=== PATIENT | female | born 1960 | race African-American/Black ===

== ENCOUNTER 2016-10-02 19:53 | Inpatient (IN) | payer OTHER ==
[~2016-10-02] VITALS: Ht 172.7 cm; Wt 46.7 kg
[2016-10-02] MEDS ORDERED: IPRATROPIUM BROMIDE (0.02%) 0.5MG/2.5ML NEB HHN STA (21:16)
[2016-10-02] MEDS ORDERED: ALBUTEROL (0.083%) 2.5MG/3ML NEB HHN STA (21:16)
[2016-10-02] MEDS ORDERED: METHYLPREDNISOLONE SOD SUCC 125 MG/2 ML VIAL IV STA (21:16)
[2016-10-02] MEDS ORDERED: VANCOMYCIN 1 G PREMIX 200 ML IV ONE (21:30)
[2016-10-02] MEDS ORDERED: SODIUM CHLORIDE 0.9% 1000ML BAG (SEPSIS BOLUS) IV ONE (21:30)
[2016-10-02] MEDS ORDERED: PIPERACILLIN/TAZ 3.375G PREMIX 50 ML IV ONE (21:30)
[2016-10-02] MEDS ORDERED: ASPIRIN 81MG TABLET GT ONE (21:30)
[2016-10-02 21:55] LABS: MEAN CORPUSCULAR HEMOGLOBIN 29.1 pg (28.0-32.0); MEAN PLATELET VOLUME 7.8 fl (7.4-10.4); PLATELET 242 x1000/uL (130-400); RED BLOOD CELL COUNT 3.78 mill/uL (4.2-5.4); RED CELL DISTRIBUTION WIDTH 18.2 % (11.6-14.6)
[2016-10-02 21:57] LABS: INR 1.1; PROTHROMBIN TIME 11.3 sec
[2016-10-02] MEDS ORDERED: IPRATROPIUM/ALBUTEROL 0.5-3(2.5)MG/3ML NEB ONE (21:58)
[2016-10-02] MEDS ORDERED: ALBUTEROL (0.5%) 2.5MG/0.5ML NEB HHN ONE (21:59)
[2016-10-02 22:07] LABS: CARBON DIOXIDE 38 mEq/L (21-32); CHLORIDE 103 mEq/L (98-107); TROPONIN I < 0.02 ng/mL (0.00-0.04)
[2016-10-02 22:14] LABS: PLATELET ESTIMATE NORMAL
[2016-10-02 22:53] LABS: CLARITY URINE CLEAR (CLEAR); COLOR URINE YELLOW (YELLOW); GLUCOSE URINE NEGATIVE (NEGATIVE); KETONES URINE NEGATIVE (NEGATIVE); LEUKOCYTE ESTERASE URINE 2+ (NEGATIVE); NITRITE URINE NEGATIVE (NEGATIVE); OCCULT BLOOD URINE 1+ (NEGATIVE); PROTEIN URINE NEGATIVE (NEGATIVE); SPECIFIC GRAVITY URINE 1.024 (1.005-1.030)
[2016-10-03] VITALS (9 sets, daily range): BP systolic 95–140; BP diastolic 22–85
[2016-10-03] MEDS ORDERED: LEVO500T15 PO (08:18)
[2016-10-03] MEDS ORDERED: MONT10TA21 PO (08:18)
[2016-10-03] MEDS ORDERED: ASCO500C6 PO (08:18)
[2016-10-03] MEDS ORDERED: DOCU-138 PO (08:18)
[2016-10-03] MEDS ORDERED: PROT40 PO (08:18)
[2016-10-03] MEDS ORDERED: OCD MT (08:18)
[2016-10-03] MEDS ORDERED: MULT-1146 PO (08:18)
[2016-10-03] MEDS ORDERED: ACET-2178 PO (08:18)
[2016-10-03] MEDS ORDERED: CARV6.2548 PO (08:18)
[2016-10-03] MEDS ORDERED: [UNRECOGNIZED DRUG - OTHER] (08:18)
[2016-10-03] MEDS ORDERED: LOSA25TA12 PO (08:18)
[2016-10-03] MEDS ORDERED: P20 PO (08:20)
[2016-10-03] MEDS ORDERED: MORPHINE SULFATE 2 MG/ML CPJ (NOT FOR IM USE) IV PRN (11:45)
[2016-10-03] MEDS ORDERED: DIPHENHYDRAMINE 50MG/ML VIAL IV PRN (11:45)
[2016-10-03] MEDS ORDERED: METHYLPREDNISOLONE SOD SUCC 40 MG/ML VIAL IV SCH (12:00)
[2016-10-03] MEDS: CALCIUM CARBONATE/VITAMIN D3 500MG TABLET PO SCH ×2 (13:07→17:17)
[2016-10-03] MEDS: DEXT 5%/0.45% NACL KCL 20MEQ/L 1,000 ML IV SCH (13:08)
[2016-10-03] MEDS: LOSARTAN POTASSIUM 25 MG TABLET PO SCH (13:08)
[2016-10-03] MEDS: DOCUSATE SODIUM 100MG CAPSULE PO SCH (13:08)
[2016-10-03] MEDS: PANTOPRAZOLE 40MG DR TABLET PO SCH (13:11)
[2016-10-03] MEDS ORDERED: IPRATROPIUM/ALBUTEROL 0.5-3(2.5)MG/3ML NEB HHN PRN (15:30)
[2016-10-03 15:49] LABS: BG CARBOXYHEMOGLOBIN 0.7 % (0.5-1.5); BG DEOXYHEMOGLOBIN 0.4 % (0.0-5.0); BG HCO3 ACT 35.3 mmol/L (22.0-26.0); BG METHEMOGLOBIN 0.4 % (0.0-1.5); BG OXYGEN SATURATION 99.6 % (92.0-98.5); BG OXYHEMOGLOBIN 98.5 % (94.0-97.0); BG PCO2 62.4 mmHg (35.0-45.0); BG PO2 287.1 mmHg (75.0-100.0); BG SAMPLE SITE RIGHT RADIAL; BG TIDAL VOLUME(mL) 350 mL; BG TOTAL HEMOGLOBIN 12.5 g/dL (12.0-18.0); BG VENT MODE VENT - A/C; BG VENT RATE 10 set
[2016-10-03 15:59] LABS: CREATINE KINASE 14 IU/L (26-192); TROPONIN I < 0.02 ng/mL (0.00-0.04)
[2016-10-03] MEDS ORDERED: SODIUM CHLORIDE 10% FOR INH 15ML VIAL NEB INH NR (17:00)
[2016-10-03] MEDS ORDERED: VANCOMYCIN 1 G PREMIX 200 ML IV NR (17:00)
[2016-10-03] MEDS: METHYLPREDNISOLONE SOD SUCC 40 MG/ML VIAL IV SCH (17:17)
[2016-10-03] MEDS: PIPERACILLIN SODIUM/TAZOBACTAM 4.5 G in DEXT 5% WATER 100 ML IV SCH (17:17)
[2016-10-03 20:04] LABS: CLARITY URINE CLEAR (CLEAR); COLOR URINE YELLOW (YELLOW); GLUCOSE URINE NEGATIVE (NEGATIVE); KETONES URINE NEGATIVE (NEGATIVE); LEUKOCYTE ESTERASE URINE 2+ (NEGATIVE); NITRITE URINE NEGATIVE (NEGATIVE); OCCULT BLOOD URINE 2+ (NEGATIVE); PH URINE 5.5 (4.5-8.0); PROTEIN URINE NEGATIVE (NEGATIVE); UROBILINOGEN URINE 0.2 E.U./dL (0.2-1.0)
[2016-10-03 20:15] LABS: *AMPHETAMINES SCREEN URINE NEGATIVE (NEGATIVE); *BARBITURATES SCREEN URINE NEGATIVE (NEGATIVE); *BENZODIAZEPINES SCREEN URINE NEGATIVE (NEGATIVE); *COCAINE SCREEN URINE NEGATIVE (NEGATIVE); CANNABINOID URINE SCREEN NEGATIVE (NEGATIVE); METHADONE URINE SCREEN NEGATIVE (NEGATIVE); OPIATES URINE SCREEN NEGATIVE (NEGATIVE); PHENCYCLIDINE URINE SCREEN NEGATIVE (NEGATIVE)
[2016-10-03] MEDS: IPRATROPIUM/ALBUTEROL 0.5-3(2.5)MG/3ML NEB HHN SCH (20:40)
[2016-10-03] MEDS: BUDESONIDE 0.5MG/2ML NEB HHN SCH (20:45)
[2016-10-03] MEDS: MONTELUKAST SODIUM 10MG TABLET PO SCH (21:25)
[2016-10-03] MEDS: CARVEDILOL 6.25 MG TABLET PO SCH (21:28)
[2016-10-03 23:43] LABS: CREATINE KINASE 14 IU/L (26-192); TROPONIN I < 0.02 ng/mL (0.00-0.04)
[2016-10-04] VITALS (12 sets, daily range): BP systolic 102–146; BP diastolic 55–91
[2016-10-04] MEDS: PIPERACILLIN SODIUM/TAZOBACTAM 4.5 G in DEXT 5% WATER 100 ML IV SCH ×2 (00:30→08:47)
[2016-10-04] MEDS: VANCOMYCIN 500 MG PREMIX 100 ML IV SCH ×2 (01:06→08:47)
[2016-10-04] MEDS: IPRATROPIUM/ALBUTEROL 0.5-3(2.5)MG/3ML NEB HHN SCH ×4 (02:19→20:42)
[2016-10-04] MEDS: DEXT 5%/0.45% NACL KCL 20MEQ/L 1,000 ML IV SCH ×3 (05:45→21:00)
[2016-10-04] MEDS: PANTOPRAZOLE 40MG DR TABLET PO SCH (06:15)
[2016-10-04 06:49] LABS: HEMATOCRIT. 34.7 % (36.0-48.0); HEMOGLOBIN. 11.4 g/dL (12.0-16.0); MEAN CORPUSCULAR HEMOGLOBIN 29.4 pg (28.0-32.0); MEAN CORPUSCULAR VOLUME 89.2 fL (81.0-99.0); MEAN PLATELET VOLUME 8.3 fl (7.4-10.4); PLATELET 288 x1000/uL (130-400); RED BLOOD CELL COUNT 3.89 mill/uL (4.2-5.4); RED CELL DISTRIBUTION WIDTH 17.5 % (11.6-14.6)
[2016-10-04 07:39] LABS: CARBON DIOXIDE 34 mEq/L (21-32); CHLORIDE 101 mEq/L (98-107); HDL CHOLESTEROL 47 mg/dL (40-59); LDL CHOLESTEROL 74 mg/dL (5-100); T4 FREE 1.23 ng/dL (0.76-1.46)
[2016-10-04] MEDS: BUDESONIDE 0.5MG/2ML NEB HHN SCH ×2 (08:22→20:43)
[2016-10-04] MEDS: DOCUSATE SODIUM 100MG CAPSULE PO SCH (08:47)
[2016-10-04] MEDS: METHYLPREDNISOLONE SOD SUCC 40 MG/ML VIAL IV SCH ×2 (08:47→20:59)
[2016-10-04] MEDS: CALCIUM CARBONATE/VITAMIN D3 500MG TABLET PO SCH ×2 (08:47→18:25)
[2016-10-04] MEDS: LOSARTAN POTASSIUM 25 MG TABLET PO SCH (08:47)
[2016-10-04] MEDS: CARVEDILOL 6.25 MG TABLET PO SCH ×2 (08:48→21:00)
[2016-10-04 10:49] LABS: PLATELET ESTIMATE NORMAL
[2016-10-04] MEDS: ENOXAPARIN 40MG/0.4ML SYR SUBCUT SCH (12:37)
[2016-10-04] MEDS ORDERED: MAGNESIUM 4 G PREMIX 100 ML IV NR (13:00)
[2016-10-04] MEDS: CEFEPIME 1,000 MG in DEXTROSE 5% WATER 50 ML IV SCH (18:25)
[2016-10-04] MEDS: MONTELUKAST SODIUM 10MG TABLET PO SCH (21:00)
[2016-10-05] VITALS (11 sets, daily range): BP systolic 101–134; BP diastolic 67–91
[2016-10-05] MEDS: IPRATROPIUM/ALBUTEROL 0.5-3(2.5)MG/3ML NEB HHN SCH ×4 (03:08→20:00)
[2016-10-05] MEDS: DEXT 5%/0.45% NACL KCL 20MEQ/L 1,000 ML IV SCH ×2 (06:40→18:09)
[2016-10-05] MEDS: CEFEPIME 1,000 MG in DEXTROSE 5% WATER 50 ML IV SCH ×2 (06:40→16:47)
[2016-10-05 06:48] LABS: CARBON DIOXIDE 37 mEq/L (21-32); CHLORIDE 100 mEq/L (98-107)
[2016-10-05 06:58] LABS: HEMATOCRIT. 35.1 % (36.0-48.0); HEMOGLOBIN. 11.5 g/dL (12.0-16.0); MEAN CORPUSCULAR VOLUME 88.9 fL (81.0-99.0); MEAN PLATELET VOLUME 8.3 fl (7.4-10.4); PLATELET 309 x1000/uL (130-400); RED BLOOD CELL COUNT 3.95 mill/uL (4.2-5.4); RED CELL DISTRIBUTION WIDTH 17.5 % (11.6-14.6)
[2016-10-05] MEDS: BUDESONIDE 0.5MG/2ML NEB HHN SCH ×2 (08:10→20:00)
[2016-10-05] MEDS: CALCIUM CARBONATE/VITAMIN D3 500MG TABLET PO SCH ×2 (08:58→16:47)
[2016-10-05] MEDS: LOSARTAN POTASSIUM 25 MG TABLET PO SCH (08:58)
[2016-10-05] MEDS: MAGNESIUM OXIDE 400MG TABLET GT SCH (08:58)
[2016-10-05] MEDS: CARVEDILOL 6.25 MG TABLET PO SCH ×2 (08:59→20:47)
[2016-10-05] MEDS: METHYLPREDNISOLONE SOD SUCC 40 MG/ML VIAL IV SCH (08:59)
[2016-10-05] MEDS: DOCUSATE SODIUM 100MG CAPSULE PO SCH (08:59)
[2016-10-05] MEDS: FAMOTIDINE 20MG TABLET PO SCH ×2 (08:59→16:47)
[2016-10-05] MEDS: ENOXAPARIN 40MG/0.4ML SYR SUBCUT SCH (13:06)
[2016-10-05 13:58] LABS: PLATELET ESTIMATE NORMAL
[2016-10-05] MEDS: MONTELUKAST SODIUM 10MG TABLET PO SCH (20:47)
[2016-10-06] VITALS (13 sets, daily range): BP systolic 84–129; BP diastolic 38–90
[2016-10-06] MEDS: DEXT 5%/0.45% NACL KCL 20MEQ/L 1,000 ML IV SCH ×2 (04:00→12:00)
[2016-10-06] MEDS: CEFEPIME 1,000 MG in DEXTROSE 5% WATER 50 ML IV SCH ×2 (06:04→18:56)
[2016-10-06 06:22] LABS: BASOPHILS % 0.4 % (0.0-2.0); EOSINOPHILS % 0.8 % (0.0-5.0); HEMATOCRIT. 35.8 % (36.0-48.0); HEMOGLOBIN. 11.7 g/dL (12.0-16.0); LYMPHOCYTES % 7.3 % (20.0-50.0); MEAN CORPUSCULAR HEMOGLOBIN 29.3 pg (28.0-32.0); MEAN CORPUSCULAR VOLUME 89.3 fL (81.0-99.0); MONOCYTES % 8.6 % (2.0-8.0); NEUTROPHILS % 82.9 % (40.0-76.0); PLATELET 274 x1000/uL (130-400); RED CELL DISTRIBUTION WIDTH 17.9 % (11.6-14.6)
[2016-10-06 06:49] LABS: CARBON DIOXIDE 37 mEq/L (21-32); CHLORIDE 98 mEq/L (98-107)
[2016-10-06] MEDS: CALCIUM CARBONATE/VITAMIN D3 500MG TABLET PO SCH ×2 (08:22→18:57)
[2016-10-06] MEDS: BUDESONIDE 0.5MG/2ML NEB HHN SCH (08:30)
[2016-10-06] MEDS: IPRATROPIUM/ALBUTEROL 0.5-3(2.5)MG/3ML NEB HHN SCH ×2 (08:30)
[2016-10-06] MEDS: CARVEDILOL 6.25 MG TABLET PO SCH (09:00)
[2016-10-06] MEDS: DOCUSATE SODIUM 100MG CAPSULE PO SCH (09:45)
[2016-10-06] MEDS: MAGNESIUM OXIDE 400MG TABLET GT SCH (09:45)
[2016-10-06] MEDS: FAMOTIDINE 20MG TABLET PO SCH ×2 (09:45→18:56)
[2016-10-06] MEDS: LOSARTAN POTASSIUM 25 MG TABLET PO SCH (09:47)
[2016-10-06] MEDS: ENOXAPARIN 40MG/0.4ML SYR SUBCUT SCH (12:40)
== END 2016-10-06 22:57 | DRG 720 ==
LOC: ER 20:15 → 5EST 10-03 00:27 → EDBEDREQ 10-03 04:54 → ENRESERV 10-03 05:04
PROVIDERS: ADMIT Internal Medicine; ATTEND Internal Medicine
PROC: 5A1945Z Respiratory Ventilation, 24-96 Consecutive Hours (ICD-10-PCS; principal; 2016-10-02)
DX: A41.9 Sepsis, unspecified organism (principal); J96.20 Acute and chronic respiratory failure, unspecified whether with hypoxia or hypercapnia; I49.01 Ventricular fibrillation; J69.0 Pneumonitis due to inhalation of food and vomit; G93.1 Anoxic brain damage, not elsewhere classified; Z99.11 Dependence on respirator [ventilator] status; E43 Unspecified severe protein-calorie malnutrition; Z93.0 Tracheostomy status; J44.1 Chronic obstructive pulmonary disease with (acute) exacerbation; I42.9 Cardiomyopathy, unspecified; E11.22 Type 2 diabetes mellitus with diabetic chronic kidney disease; I48.91 Unspecified atrial fibrillation; N39.0 Urinary tract infection, site not specified; I50.9 Heart failure, unspecified; D63.8 Anemia in other chronic diseases classified elsewhere; E83.42 Hypomagnesemia; E87.6 Hypokalemia; I13.0 Hypertensive heart and chronic kidney disease with heart failure and stage 1 through stage 4 chronic kidney disease, or unspecified chronic kidney disease; I49.1 Atrial premature depolarization; I49.3 Ventricular premature depolarization; R91.1 Solitary pulmonary nodule; N18.9 Chronic kidney disease, unspecified; Z86.73 Personal history of transient ischemic attack (TIA), and cerebral infarction without residual deficits; Z93.1 Gastrostomy status; Z95.810 Presence of automatic (implantable) cardiac defibrillator; Z68.1 Body mass index [BMI] 19.9 or less, adult
CPT/HCPCS: 36415; 36600; 71010; 80048; 80053; 80061; 80202; 80305; 81001; 82375; 82550; 82805; 83605; 83735; 83880; 84439; 84443; 84484; 85025; 85610; 86850; 86900; 87040; 87070; 87077; 87086; 87186; 93005; 93306; 93970; 94002; 94003; 94640; 96365; 96366; 96367; 96375; 99285; A6261; J0692; J1650; J2270; J2543; J2920; J2930; J3370; J3475; J7030; J7040; J7050; J7060; J7131; J7611; J7620; J7626

== ENCOUNTER 2016-10-09 14:30 | Emergency (ER) | payer OTHER ==
[~2016-10-09] VITALS: Ht 165.1 cm; Wt 46.0 kg
[~2016-10-09 14:30] MED LIST: ACET-2178 PO; ASCO500C6 PO; CARV6.2548 PO; DOCU-138 PO; LEVO500T15 PO; LOSA25TA12 PO; MONT10TA21 PO; MULT-1146 PO; OCD MT; P20 PO; PROT40 PO; [UNRECOGNIZED DRUG - OTHER]
[2016-10-09] MEDS ORDERED: KETOROLAC 30MG/ML VIAL IV STA (14:52)
[2016-10-09 15:19] LABS: HEMATOCRIT. 38.1 % (36.0-48.0); HEMOGLOBIN. 12.4 g/dL (12.0-16.0); MEAN CORPUSCULAR HEMOGLOBIN 29.2 pg (28.0-32.0); MEAN CORPUSCULAR VOLUME 89.4 fL (81.0-99.0); MEAN PLATELET VOLUME 7.8 fl (7.4-10.4); PLATELET 309 x1000/uL (130-400); RED BLOOD CELL COUNT 4.26 mill/uL (4.2-5.4); RED CELL DISTRIBUTION WIDTH 17.9 % (11.6-14.6)
[2016-10-09 15:22] LABS: CHLORIDE 99 mEq/L (98-107)
[2016-10-09 15:24] LABS: PROTHROMBIN TIME 10.7 sec
[2016-10-09 15:25] LABS: BG BASE EXCESS 6.8 mmol/L (-2.0-2.0); BG DEOXYHEMOGLOBIN 1.3 % (0.0-5.0); BG FRACTION INSPIRED OXYGEN 40; BG HCO3 ACT 33.3 mmol/L (22.0-26.0); BG METHEMOGLOBIN 0.2 % (0.0-1.5); BG OXYGEN SATURATION 98.7 % (92.0-98.5); BG OXYHEMOGLOBIN 97.5 % (94.0-97.0); BG PCO2 55.2 mmHg (35.0-45.0); BG PH 7.398 (7.350-7.450); BG PO2 133.5 mmHg (75.0-100.0); BG SAMPLE SITE RIGHT RADIAL; BG TIDAL VOLUME(mL) 400 mL; BG VENT MODE VENT - A/C; BG VENT RATE 14 set
[2016-10-09 15:28] LABS: CARBON DIOXIDE 34 mEq/L (21-32)
[2016-10-09 15:42] LABS: PLATELET ESTIMATE NORMAL
[2016-10-09 18:18] LABS: CLARITY URINE CLEAR (CLEAR); COLOR URINE YELLOW (YELLOW); GLUCOSE URINE NEGATIVE (NEGATIVE); KETONES URINE NEGATIVE (NEGATIVE); LEUKOCYTE ESTERASE URINE 1+ (NEGATIVE); NITRITE URINE NEGATIVE (NEGATIVE); OCCULT BLOOD URINE NEGATIVE (NEGATIVE); PROTEIN URINE 2+ (NEGATIVE); SPECIFIC GRAVITY URINE 1.019 (1.005-1.030); UROBILINOGEN URINE 0.2 E.U./dL (0.2-1.0)
[2016-10-10] MEDS ORDERED: ALBUTEROL (0.5%) 2.5MG/0.5ML NEB HHN ONE
[2016-10-10 01:25] VITALS: BP 86/61
== END 2016-10-10 01:40 | disposition home or self-care (01) ==
LOC: ER 14:38 → EDBEDREQ 18:27 → CANBEDREQ 22:53 → ER 10-10 01:40
DX: N39.0 Urinary tract infection, site not specified (principal); J44.9 Chronic obstructive pulmonary disease, unspecified; I13.0 Hypertensive heart and chronic kidney disease with heart failure and stage 1 through stage 4 chronic kidney disease, or unspecified chronic kidney disease; N18.9 Chronic kidney disease, unspecified; I50.9 Heart failure, unspecified; Z93.0 Tracheostomy status; Z93.1 Gastrostomy status; Z95.810 Presence of automatic (implantable) cardiac defibrillator; Z86.73 Personal history of transient ischemic attack (TIA), and cerebral infarction without residual deficits; Z86.2 Personal history of diseases of the blood and blood-forming organs and certain disorders involving the immune mechanism; Z79.899 Other long term (current) drug therapy
CPT/HCPCS: 36415; 36600; 71010; 74176; 80053; 81001; 82375; 82805; 82962; 83690; 85025; 85610; 93005; 94640; 96374; 99285; J1885; J7611; Z7610; 94002; A4315

== ENCOUNTER 2018-01-17 12:43 | Inpatient (IN) | payer MEDICAID, OTHER ==
[~2018-01-17] VITALS: Ht 172.7 cm; Wt 81.6 kg
[~2018-01-17 12:43] MED LIST changes: -LEVO500T15 PO; +LEVO500T2 PO
[2018-01-17 13:58] LABS: BG BASE EXCESS 9.9 mmol/L (-2.0-2.0); BG CARBOXYHEMOGLOBIN 1.1 % (0.5-1.5); BG FRACTION INSPIRED OXYGEN 40; BG HCO3 ACT 36.7 mmol/L (22.0-26.0); BG METHEMOGLOBIN 0.3 % (0.0-1.5); BG OXYHEMOGLOBIN 97.6 % (94.0-97.0); BG PCO2 58.7 mmHg (35.0-45.0); BG PH 7.414 (7.350-7.450); BG PO2 147.1 mmHg (75.0-100.0); BG SAMPLE SITE LEFT RADIAL; BG TIDAL VOLUME(mL) 500 mL; BG VENT MODE VENT - A/C; BG VENT RATE 14 set
[2018-01-17 14:09] LABS: BASOPHILS % 0.5 % (0.0-2.0); EOSINOPHILS % 0.1 % (0.0-5.0); HEMATOCRIT. 41.6 % (36.0-48.0); HEMOGLOBIN. 13.7 g/dL (12.0-16.0); LYMPHOCYTES % 7.4 % (20.0-50.0); MEAN CORPUSCULAR HEMOGLOBIN 31.3 pg (28.0-32.0); MEAN CORPUSCULAR VOLUME 95.4 fL (81.0-99.0); MEAN PLATELET VOLUME 9.8 fl (7.4-10.4); MONOCYTES % 8.6 % (2.0-8.0); NEUTROPHILS % 83.4 % (40.0-76.0); PLATELET 224 x1000/uL (130-400); RED BLOOD CELL COUNT 4.37 mill/uL (4.2-5.4); RED CELL DISTRIBUTION WIDTH 12.9 % (11.6-14.6)
[2018-01-17 14:15] LABS: CHLORIDE 100 mEq/L (98-107)
[2018-01-17 14:44] LABS: INR 1.1; PARTIAL THROMBOPLASTIN TIME 31.6 sec (23.4-31.0); PROTHROMBIN TIME 10.6 sec (9.1-11.1)
[2018-01-17 14:56] LABS: CLARITY URINE CLOUDY (CLEAR); COLOR URINE YELLOW (YELLOW); KETONES URINE NEGATIVE (NEGATIVE); LEUKOCYTE ESTERASE URINE 2+ (NEGATIVE); NITRITE URINE NEGATIVE (NEGATIVE); OCCULT BLOOD URINE NEGATIVE (NEGATIVE); PH URINE >=9.0 (4.5-8.0); PROTEIN URINE 1+ (NEGATIVE); SPECIFIC GRAVITY URINE 1.019 (1.005-1.030); UROBILINOGEN URINE 0.2 E.U./dL (0.2-1.0)
[2018-01-17] MEDS ORDERED: IPRATROPIUM/ALBUTEROL 0.5-3(2.5)MG/3ML NEB HHN PRN (15:00)
[2018-01-17] MEDS ORDERED: CEFTRIAXONE 1 G PREMIX 50 ML IV ONE (15:30)
[2018-01-17 16:00] VITALS: BP 139/70
[2018-01-17 16:23] VITALS: BP 139/70
[2018-01-17 17:30] VITALS: BP 139/55
[2018-01-17] MEDS: CALCIUM CARBONATE/VITAMIN D3 500MG TABLET PO SCH (17:58)
[2018-01-17] MEDS: MONTELUKAST SODIUM 10MG TABLET PO SCH (17:58)
[2018-01-17] MEDS: MORPHINE SULFATE 4 MG/ML CPJ (NOT FOR IM USE) IV PRN (17:59)
[2018-01-17 20:00] VITALS: BP 114/50
[2018-01-17] MEDS: CEFTRIAXONE 1 G PREMIX 50 ML IV SCH (20:00)
[2018-01-17] MEDS: IPRATROPIUM/ALBUTEROL 0.5-3(2.5)MG/3ML NEB HHN SCH (20:23)
[2018-01-17] MEDS: BUDESONIDE 0.5MG/2ML NEB HHN SCH (20:23)
[2018-01-17 22:00] VITALS: BP 106/58
[2018-01-18] VITALS (11 sets, daily range): BP systolic 92–121; BP diastolic 48–86
[2018-01-18] MEDS: IPRATROPIUM/ALBUTEROL 0.5-3(2.5)MG/3ML NEB HHN SCH ×5 (00:02→19:39)
[2018-01-18] MEDS: MORPHINE SULFATE 4 MG/ML CPJ (NOT FOR IM USE) IV PRN (03:59)
[2018-01-18] MEDS: PANTOPRAZOLE 40MG DR TABLET PO SCH (06:44)
[2018-01-18 07:32] LABS: HEMATOCRIT. 35.2 % (36.0-48.0); HEMOGLOBIN. 11.9 g/dL (12.0-16.0); MEAN CORPUSCULAR HEMOGLOBIN 31.9 pg (28.0-32.0); MEAN CORPUSCULAR VOLUME 94.8 fL (81.0-99.0); MEAN PLATELET VOLUME 9.6 fl (7.4-10.4); PLATELET 208 x1000/uL (130-400); RED BLOOD CELL COUNT 3.71 mill/uL (4.2-5.4); RED CELL DISTRIBUTION WIDTH 13.1 % (11.6-14.6)
[2018-01-18 07:45] LABS: CHLORIDE 97 mEq/L (98-107)
[2018-01-18] MEDS: BUDESONIDE 0.5MG/2ML NEB HHN SCH ×2 (08:38→19:39)
[2018-01-18] MEDS: ASCORBIC ACID 500 MG TABLET PO SCH (08:53)
[2018-01-18] MEDS: CALCIUM CARBONATE/VITAMIN D3 500MG TABLET PO SCH ×2 (08:53→18:00)
[2018-01-18] MEDS: DOCUSATE SODIUM SUGAR FREE 100MG/10ML UDC NG SCH (08:53)
[2018-01-18] MEDS: CARVEDILOL 6.25 MG TABLET PO SCH ×2 (08:59→17:00)
[2018-01-18] MEDS: LOSARTAN POTASSIUM 25 MG TABLET PO SCH (08:59)
[2018-01-18 11:31] LABS: PLATELET ESTIMATE NORMAL
[2018-01-18] MEDS ORDERED: AMIODARONE HCL 150 MG in DEXT 5% WATER 100 ML IV NR ×3 (17:30→18:30)
[2018-01-18] MEDS ORDERED: AMIODARONE HCL 900 MG in DEXT 5% WATER 482 ML IV PRN ×3 (17:55→18:45)
[2018-01-18] MEDS: MONTELUKAST SODIUM 10MG TABLET PO SCH (18:04)
[2018-01-18] MEDS: CEFTRIAXONE 1 G PREMIX 50 ML IV SCH (18:32)
[2018-01-19] VITALS (12 sets, daily range): BP systolic 90–120; BP diastolic 16–70
[2018-01-19] MEDS: LORAZEPAM 2MG/ML CPJ IV PRN ×2 (00:03→21:24)
[2018-01-19] MEDS: IPRATROPIUM/ALBUTEROL 0.5-3(2.5)MG/3ML NEB HHN SCH ×5 (04:37→19:48)
[2018-01-19] MEDS: PANTOPRAZOLE 40MG DR TABLET PO SCH (06:56)
[2018-01-19] MEDS: BUDESONIDE 0.5MG/2ML NEB HHN SCH ×2 (08:10→19:48)
[2018-01-19] MEDS: DOCUSATE SODIUM SUGAR FREE 100MG/10ML UDC NG SCH (08:27)
[2018-01-19] MEDS: ASCORBIC ACID 500 MG TABLET PO SCH (08:27)
[2018-01-19] MEDS: LOSARTAN POTASSIUM 25 MG TABLET PO SCH (08:27)
[2018-01-19] MEDS: CARVEDILOL 6.25 MG TABLET PO SCH ×2 (08:28→16:28)
[2018-01-19] MEDS: CALCIUM CARBONATE/VITAMIN D3 500MG TABLET PO SCH ×2 (08:28→16:29)
[2018-01-19 08:48] LABS: HEMATOCRIT. 35.9 % (36.0-48.0); HEMOGLOBIN. 11.8 g/dL (12.0-16.0); MEAN CORPUSCULAR HEMOGLOBIN 31.5 pg (28.0-32.0); MEAN CORPUSCULAR VOLUME 95.6 fL (81.0-99.0); MEAN PLATELET VOLUME 10.7 fl (7.4-10.4); PLATELET 208 x1000/uL (130-400); RED BLOOD CELL COUNT 3.75 mill/uL (4.2-5.4); RED CELL DISTRIBUTION WIDTH 12.8 % (11.6-14.6)
[2018-01-19 10:43] LABS: CHLORIDE 99 mEq/L (98-107)
[2018-01-19 10:52] LABS: CREATINE KINASE 72 IU/L (26-192)
[2018-01-19 10:56] LABS: CREATINE KINASE MB FRACTION 1.1 ng/mL (0.5-3.6)
[2018-01-19] MEDS: MORPHINE SULFATE 4 MG/ML CPJ (NOT FOR IM USE) IV PRN ×2 (12:18→18:01)
[2018-01-19 14:46] LABS: PLATELET ESTIMATE NORMAL
[2018-01-19] MEDS: AMIODARONE HCL 200 MG TABLET PO SCH (16:24)
[2018-01-19] MEDS: MONTELUKAST SODIUM 10MG TABLET PO SCH (16:24)
[2018-01-19] MEDS: CEFTRIAXONE 1 G PREMIX 50 ML IV SCH (17:34)
[2018-01-20] VITALS (15 sets, daily range): BP systolic 89–122; BP diastolic 27–64
[2018-01-20] MEDS: MORPHINE SULFATE 4 MG/ML CPJ (NOT FOR IM USE) IV PRN ×2 (00:36→20:08)
[2018-01-20] MEDS: IPRATROPIUM/ALBUTEROL 0.5-3(2.5)MG/3ML NEB HHN SCH ×4 (01:40→20:15)
[2018-01-20] MEDS: LORAZEPAM 2MG/ML CPJ IV PRN ×2 (05:15→14:26)
[2018-01-20] MEDS: PANTOPRAZOLE 40MG DR TABLET PO SCH (06:33)
[2018-01-20 07:22] LABS: BASOPHILS % 0.7 % (0.0-2.0); EOSINOPHILS % 2.2 % (0.0-5.0); HEMATOCRIT. 30.8 % (36.0-48.0); HEMOGLOBIN. 10.4 g/dL (12.0-16.0); LYMPHOCYTES % 16.7 % (20.0-50.0); MEAN CORPUSCULAR VOLUME 94.8 fL (81.0-99.0); MEAN PLATELET VOLUME 8.7 fl (7.4-10.4); MONOCYTES % 13.2 % (2.0-8.0); NEUTROPHILS % 67.2 % (40.0-76.0); PLATELET 190 x1000/uL (130-400); RED BLOOD CELL COUNT 3.25 mill/uL (4.2-5.4)
[2018-01-20 07:45] LABS: CHLORIDE 101 mEq/L (98-107)
[2018-01-20] MEDS: BUDESONIDE 0.5MG/2ML NEB HHN SCH ×2 (07:49→20:15)
[2018-01-20] MEDS: CALCIUM CARBONATE/VITAMIN D3 500MG TABLET PO SCH ×2 (14:32→17:23)
[2018-01-20] MEDS: ASCORBIC ACID 500 MG TABLET PO SCH (14:32)
[2018-01-20] MEDS: DOCUSATE SODIUM SUGAR FREE 100MG/10ML UDC NG SCH (14:33)
[2018-01-20] MEDS: AMIODARONE HCL 200 MG TABLET PO SCH ×2 (14:35→18:02)
[2018-01-20] MEDS: CARVEDILOL 6.25 MG TABLET PO SCH ×2 (14:36→18:03)
[2018-01-20] MEDS: LOSARTAN POTASSIUM 25 MG TABLET PO SCH (14:37)
[2018-01-20] MEDS: CEFTRIAXONE 1 G PREMIX 50 ML IV SCH (17:19)
[2018-01-20] MEDS: MONTELUKAST SODIUM 10MG TABLET PO SCH (17:23)
[2018-01-21] VITALS (12 sets, daily range): BP systolic 92–122; BP diastolic 48–78
[2018-01-21] MEDS: LORAZEPAM 2MG/ML CPJ IV PRN ×2 (01:12→10:25)
[2018-01-21] MEDS: IPRATROPIUM/ALBUTEROL 0.5-3(2.5)MG/3ML NEB HHN SCH ×4 (02:12→19:38)
[2018-01-21] MEDS: BUDESONIDE 0.5MG/2ML NEB HHN SCH ×2 (08:06→19:42)
[2018-01-21] MEDS: AMIODARONE HCL 200 MG TABLET PO SCH ×2 (08:28→16:51)
[2018-01-21] MEDS: CALCIUM CARBONATE/VITAMIN D3 500MG TABLET PO SCH ×2 (08:28→17:06)
[2018-01-21] MEDS: LOSARTAN POTASSIUM 25 MG TABLET PO SCH (08:28)
[2018-01-21] MEDS: DOCUSATE SODIUM SUGAR FREE 100MG/10ML UDC NG SCH (08:28)
[2018-01-21] MEDS: PANTOPRAZOLE 40MG DR TABLET PO SCH (08:28)
[2018-01-21] MEDS: ASCORBIC ACID 500 MG TABLET PO SCH (08:28)
[2018-01-21] MEDS: CARVEDILOL 6.25 MG TABLET PO SCH ×2 (08:29→16:52)
[2018-01-21] MEDS ORDERED: POTASSIUM CHLORIDE 20MEQ TABLET SR PO NR (10:40)
[2018-01-21] MEDS: MONTELUKAST SODIUM 10MG TABLET PO SCH (16:52)
[2018-01-21] MEDS: CEFTRIAXONE 1 G PREMIX 50 ML IV SCH (18:30)
== END 2018-01-21 20:21 | DRG 720 ==
LOC: ER 12:43 → 5EST 14:08 → ENRESERV 14:36 → 5EST 15:45
PROVIDERS: ADMIT Internal Medicine; ATTEND Internal Medicine
PROC: 5A1955Z Respiratory Ventilation, Greater than 96 Consecutive Hours (ICD-10-PCS; principal; 2018-01-17)
DX: A41.9 Sepsis, unspecified organism (principal); J96.20 Acute and chronic respiratory failure, unspecified whether with hypoxia or hypercapnia; I49.01 Ventricular fibrillation; Z99.11 Dependence on respirator [ventilator] status; G93.1 Anoxic brain damage, not elsewhere classified; Z93.0 Tracheostomy status; J44.9 Chronic obstructive pulmonary disease, unspecified; I50.22 Chronic systolic (congestive) heart failure; I11.0 Hypertensive heart disease with heart failure; I42.9 Cardiomyopathy, unspecified; I48.0 Paroxysmal atrial fibrillation; E44.1 Mild protein-calorie malnutrition; N39.0 Urinary tract infection, site not specified; R91.8 Other nonspecific abnormal finding of lung field; R91.1 Solitary pulmonary nodule; D64.9 Anemia, unspecified; E11.9 Type 2 diabetes mellitus without complications; I25.2 Old myocardial infarction; Z86.74 Personal history of sudden cardiac arrest; Z95.810 Presence of automatic (implantable) cardiac defibrillator; Z87.01 Personal history of pneumonia (recurrent); Z79.899 Other long term (current) drug therapy; Z68.27 Body mass index [BMI] 27.0-27.9, adult
CPT/HCPCS: 36415; 36600; 71045; 78580; 80048; 80053; 80061; 81003; 82375; 82550; 82553; 82805; 83605; 83735; 83880; 84443; 84484; 85025; 85610; 85730; 87040; 87077; 87086; 87186; 93005; 93306; 94002; 94003; 94640; 99285; J0282; J0696; J2060; J2270; J7040; J7050; J7060; J7620; J7626

== ENCOUNTER 2018-09-28 18:47 | Inpatient (IN) | payer MEDICAID ==
[~2018-09-28] VITALS: Ht 170.2 cm; Wt 84.4 kg
[~2018-09-28 18:47] MED LIST changes: -LOSA25TA12 PO; +LOSA25TA26 PO
[2018-09-28] MEDS ORDERED: ASPIRIN 81MG TABLET PO ONE (19:00)
[2018-09-28] MEDS ORDERED: SODIUM CHLORIDE 0.9% 1000ML BAG (SEPSIS BOLUS) IV ONE (19:00)
[2018-09-28 19:27] LABS: BASOPHILS % 0.9 % (0.0-2.0); EOSINOPHILS % 2.2 % (0.0-5.0); HEMATOCRIT. 34.2 % (36.0-48.0); HEMOGLOBIN. 11.4 g/dL (12.0-16.0); LYMPHOCYTES % 16.5 % (20.0-50.0); MEAN CORPUSCULAR HEMOGLOBIN 30.5 pg (28.0-32.0); MEAN CORPUSCULAR VOLUME 91.3 fL (81.0-99.0); MEAN PLATELET VOLUME 8.1 fl (7.4-10.4); MONOCYTES % 11.4 % (2.0-8.0); PLATELET 285 x1000/uL (130-400); RED BLOOD CELL COUNT 3.74 mill/uL (4.2-5.4)
[2018-09-28 19:30] LABS: CHLORIDE 104 mEq/L (98-107)
[2018-09-28 19:31] LABS: PARTIAL THROMBOPLASTIN TIME 32.1 sec (23.4-31.0); PROTHROMBIN TIME 10.3 sec (9.6-11.0)
[2018-09-28] MEDS ORDERED: ACETAMINOPHEN 325MG TABLET PO ONE (20:15)
[2018-09-28] MEDS ORDERED: VANCOMYCIN 1 G PREMIX 200 ML IV SCH (20:15)
[2018-09-28] MEDS ORDERED: PIPERACILLIN/TAZ 3.375G PREMIX 50 ML IV ONE (20:15)
[2018-09-28] MEDS ORDERED: IPRATROPIUM BROMIDE (0.02%) 0.5MG/2.5ML NEB HHN STA (20:45)
[2018-09-28] MEDS ORDERED: ALBUTEROL (0.083%) 2.5MG/3ML NEB HHN STA (20:45)
[2018-09-28] MEDS ORDERED: METHYLPREDNISOLONE SOD SUCC 125 MG/2 ML VIAL IV STA (20:45)
[2018-09-28 22:06] LABS: BG BASE EXCESS 0.3 mmol/L (-2.0-2.0); BG CARBOXYHEMOGLOBIN 0.5 % (0.5-1.5); BG DEOXYHEMOGLOBIN 0.6 % (0.0-5.0); BG FRACTION INSPIRED OXYGEN 50; BG HCO3 ACT 26.3 mmol/L (22.0-26.0); BG METHEMOGLOBIN 0.2 % (0.0-1.5); BG OXYGEN SATURATION 99.4 % (92.0-98.5); BG OXYHEMOGLOBIN 98.7 % (94.0-97.0); BG PCO2 47.9 mmHg (35.0-45.0); BG PH 7.357 (7.350-7.450); BG PO2 254.5 mmHg (75.0-100.0); BG SAMPLE SITE LEFT RADIAL; BG TIDAL VOLUME(mL) 500 mL; BG TOTAL HEMOGLOBIN 12.5 g/dL (12.0-18.0); BG VENT MODE VENT - A/C; BG VENT RATE 12 set
[2018-09-28] MEDS ORDERED: METOCLOPRAMIDE HCL 5MG TABLET PO PRN (22:15)
[2018-09-28] MEDS ORDERED: MAGNESIUM/ALUMINUM HYDROXIDE/SIMETHICONE 30ML UDC PO PRN (22:15)
[2018-09-28] MEDS ORDERED: GUAIFENESIN 200MG/10ML SUGAR FREE UDC PO PRN (22:15)
[2018-09-28] MEDS ORDERED: ONDANSETRON HCL 4MG/2ML INJ IV PRN (22:15)
[2018-09-28] MEDS ORDERED: ACETAMINOPHEN 325MG TABLET PO PRN (22:15)
[2018-09-28] MEDS ORDERED: ACETAMINOPHEN 650MG/20.3ML UDC GT PRN (22:15)
[2018-09-28] MEDS ORDERED: DOCUSATE SODIUM 100MG CAPSULE PO PRN (22:15)
[2018-09-28] MEDS ORDERED: CLONIDINE 0.1MG TABLET PO PRN (22:15)
[2018-09-28] MEDS ORDERED: IPRATROPIUM/ALBUTEROL 0.5-3(2.5)MG/3ML NEB INH PRN (22:15)
[2018-09-28] MEDS ORDERED: NA PHOS,M-B/NA PHOS,DI-BA ENEMA 118ML PR PRN (22:15)
[2018-09-28] MEDS ORDERED: ACETAMINOPHEN 650MG SUPP PR PRN (22:15)
[2018-09-28] MEDS ORDERED: DIPHENHYDRAMINE 50MG/ML VIAL IV PRN (22:15)
[2018-09-29] VITALS (16 sets, daily range): BP systolic 78–126; BP diastolic 34–106
[2018-09-29] MEDS ORDERED: CEFTRIAXONE 1 G PREMIX 50 ML IV SCH
[2018-09-29] MEDS: IPRATROPIUM/ALBUTEROL 0.5-3(2.5)MG/3ML NEB INH SCH ×4 (02:30→21:09)
[2018-09-29] MEDS: SODIUM CHLORIDE 0.9% INJ 3ML FLUSH IVF SCH ×3 (06:37→22:38)
[2018-09-29 11:54] LABS: CHLORIDE 106 mEq/L (98-107)
[2018-09-29 12:02] LABS: HEMATOCRIT. 33.1 % (36.0-48.0); HEMOGLOBIN. 10.7 g/dL (12.0-16.0); LDL CHOLESTEROL 78 mg/dL (5-100); MEAN CORPUSCULAR VOLUME 92.7 fL (81.0-99.0); MEAN PLATELET VOLUME 8.4 fl (7.4-10.4); PLATELET 269 x1000/uL (130-400); RED BLOOD CELL COUNT 3.57 mill/uL (4.2-5.4); RED CELL DISTRIBUTION WIDTH 12.8 % (11.6-14.6)
[2018-09-29 12:03] LABS: CREATINE KINASE 35 IU/L (26-192)
[2018-09-29 12:04] LABS: HDL CHOLESTEROL 54 mg/dL (40-59)
[2018-09-29 12:06] LABS: CREATINE KINASE MB FRACTION < 1.0 ng/mL (0.5-3.6)
[2018-09-29 14:45] LABS: PLATELET ESTIMATE NORMAL
[2018-09-29] MEDS: ENOXAPARIN 40MG/0.4ML SYR SUBCUT SCH (17:10)
[2018-09-29 18:40] LABS: CREATINE KINASE 42 IU/L (26-192)
[2018-09-29 18:42] LABS: CREATINE KINASE MB FRACTION < 1.0 ng/mL (0.5-3.6)
[2018-09-29] MEDS: HYDROCODONE/ACETAMINOPHEN 5/325MG TABLET PO PRN (21:00)
[2018-09-30] VITALS (18 sets, daily range): BP systolic 81–143; BP diastolic 51–75
[2018-09-30] MEDS ORDERED: CEFTRIAXONE 1 G PREMIX 50 ML IV SCH (02:00)
[2018-09-30] MEDS: IPRATROPIUM/ALBUTEROL 0.5-3(2.5)MG/3ML NEB INH SCH ×4 (02:14→20:05)
[2018-09-30] MEDS ORDERED: IPRA3AMP9 INH ×2 (11:36)
[2018-09-30] MEDS ORDERED: BUDESONIDE 0.5MG/2ML NEB HHN SCH (15:00)
[2018-09-30] MEDS: ENOXAPARIN 40MG/0.4ML SYR SUBCUT SCH (17:00)
[2018-10-01] VITALS: BP 126/59
[2018-10-01] MEDS: HYDROCODONE/ACETAMINOPHEN 5/325MG TABLET PO PRN (01:04)
[2018-10-01] MEDS: IPRATROPIUM/ALBUTEROL 0.5-3(2.5)MG/3ML NEB INH SCH (01:44)
[2018-10-01 02:00] VITALS: BP 149/76
[2018-10-01 02:29] VITALS: BP 149/76
== END 2018-10-01 02:41 | DRG 133 ==
LOC: ER 18:50 → 5EST 20:51 → ENRESERV 21:47
PROVIDERS: ADMIT Family Medicine; ATTEND Family Medicine
PROC: 5A1945Z Respiratory Ventilation, 24-96 Consecutive Hours (ICD-10-PCS; principal; 2018-09-28)
DX: J96.20 Acute and chronic respiratory failure, unspecified whether with hypoxia or hypercapnia (principal); Z99.11 Dependence on respirator [ventilator] status; J44.1 Chronic obstructive pulmonary disease with (acute) exacerbation; Z93.0 Tracheostomy status; I27.20 Pulmonary hypertension, unspecified; I07.1 Rheumatic tricuspid insufficiency; I11.0 Hypertensive heart disease with heart failure; I50.9 Heart failure, unspecified; I42.9 Cardiomyopathy, unspecified; I48.91 Unspecified atrial fibrillation; I25.2 Old myocardial infarction; Z74.01 Bed confinement status; Z87.891 Personal history of nicotine dependence; Z93.1 Gastrostomy status; Z95.810 Presence of automatic (implantable) cardiac defibrillator; Z79.1 Long term (current) use of non-steroidal anti-inflammatories (NSAID); Z79.899 Other long term (current) drug therapy; Z79.2 Long term (current) use of antibiotics
CPT/HCPCS: 36415; 36600; 71045; 78580; 80061; 82375; 82550; 82553; 82805; 83605; 83880; 84145; 84484; 85379; 92610; 93005; 93306; 93970; 94002; 94003; 94640; 99285; J0696; J1650; J2543; J2930; J3370; J7620; J7626

== ENCOUNTER 2021-08-15 10:09 | Emergency (ER) | payer MEDICAID ==
[~2021-08-15] VITALS: Ht 170.2 cm; Wt 66.0 kg
[~2021-08-15 10:09] MED LIST changes: -ACET-2178 PO; +ATROPINE SULFATE 1MG/10ML SYR ONE; +CALCIUM CHLORIDE 1GM/10ML SYR IV ONE; -CARV6.2548 PO; +EPINEPHRINE 0.1MG/ML (1:10,000) 10ML SYR ONE; +IPRA3AMP9 INH; -LEVO500T2 PO; -LOSA25TA26 PO; -P20 PO; +TOPUD PO; -[UNRECOGNIZED DRUG - OTHER]
[2021-08-15 12:01] LABS: HEMATOCRIT. 36.7 % (36.0-48.0); HEMOGLOBIN. 11.8 g/dL (12.0-16.0); MEAN CORPUSCULAR HEMOGLOBIN 30.9 pg (28.0-32.0); MEAN CORPUSCULAR VOLUME 96.2 fL (81.0-99.0); PLATELET 352 x1000/uL (130-400); RED BLOOD CELL COUNT 3.81 mill/uL (4.2-5.4); RED CELL DISTRIBUTION WIDTH 13.9 % (11.6-14.6)
[2021-08-15 12:11] LABS: BG BASE EXCESS 5.7 mmol/L (-2.0-2.0); BG CARBOXYHEMOGLOBIN 0.5 % (0.5-1.5); BG DEOXYHEMOGLOBIN 12.8 % (0.0-5.0); BG FRACTION INSPIRED OXYGEN 50; BG METHEMOGLOBIN 0.3 % (0.0-1.5); BG OXYGEN SATURATION 87.1 % (92.0-98.5); BG OXYHEMOGLOBIN 86.4 % (94.0-97.0); BG PCO2 61.5 mmHg (35.0-45.0); BG PH 7.348 (7.350-7.450); BG PO2 55.6 mmHg (75.0-100.0); BG SAMPLE SITE RIGHT RADIAL; BG TOTAL HEMOGLOBIN 12.2 g/dL (12.0-18.0); BG VENT MODE VENT - AC
[2021-08-15 12:14] LABS: CHLORIDE 102 mEq/L (98-107)
[2021-08-15 12:54] LABS: PLATELET ESTIMATE NORMAL
[2021-08-15 16:30] VITALS: BP 108/88
== END 2021-08-15 20:54 ==
LOC: ER 10:09
DX: R06.03 Acute respiratory distress (principal); J95.03 Malfunction of tracheostomy stoma; J93.9 Pneumothorax, unspecified; R09.02 Hypoxemia; I49.01 Ventricular fibrillation; R91.8 Other nonspecific abnormal finding of lung field; Y84.8 Other medical procedures as the cause of abnormal reaction of the patient, or of later complication, without mention of misadventure at the time of the procedure; Y82.8 Other medical devices associated with adverse incidents; Y92.128 Other place in nursing home as the place of occurrence of the external cause; J44.9 Chronic obstructive pulmonary disease, unspecified; Z95.0 Presence of cardiac pacemaker
CPT/HCPCS: 32551; 36415; 36600; 71045; 80053; 82375; 82805; 82962; 85025; 92950; 99285; J0461; J3490